=== PATIENT | male | born 1940 | race Caucasian/White ===

== ENCOUNTER 2024-09-26 13:42 | Inpatient (IN) | payer MEDICARE ==
[~2024-09-26] VITALS: Ht 195.6 cm; Wt 75.0 kg
[2024-09-26] MEDS: CefTRIAXone/D5W-Rocephin 1gm 50 ML IV ONE (14:06)
[2024-09-26] MEDS: normal saline 1000ml 1,000 ML IV ONE (14:06)
[2024-09-26 14:11] LABS: ABG BASE EXCESS -2.3 mmol/L (-2.0-3.0); ABG HCO3 20.1 mmol/L (21.0-28.0); ABG PCO2 (T) 29.4 mmHg (35.0-48.0); ABG PH (T) 7.454 (7.350-7.450); ABG PO2 (T) 68.5 mmHg (83.0-108.0); ALLEN'S TEST POSITIVE; FCOHb 0.2 % (0.5-1.5); FLOW 15 L/min; FO2Hb 93.8 % (94.0-98.0); MODE NRB; PATIENT TEMPERATURE 37.4; TOTAL HEMOGLOBIN 15.5 G/dl (13.5-17.5)
[2024-09-26 14:12] LABS: BASOPHILS % (AUTO) 0.3 % (0-1); EOSINOPHILS % (AUTO) 0.2 % (0-6); HEMATOCRIT 43.4 % (42.0-52.0); HEMOGLOBIN 14.6 g/dl (14.0-17.9); LYMPHOCYTES # (AUTO) 0.3 X10'3 (1.1-4.8); LYMPHOCYTES % (AUTO) 2.3 % (21-51); MEAN CORPUSCULAR HEMOGLOBIN 31.2 PG (27.0-31.0); MEAN CORPUSCULAR HGB CONC 33.7 g/dL (33.0-36.5); MEAN CORPUSCULAR VOLUME 92.6 FL (78-98); MEAN PLATELET VOLUME 9.6 FL (7.4-10.4); MONOCYTES # (AUTO) 0.8 X10'3 (0-0.9); MONOCYTES % (AUTO) 5.7 % (2-12); NEUTROPHILS # (AUTO) 13.5 X10'3 (1.8-7.7); NEUTROPHILS % (AUTO) 91.5 % (42-75); PLATELET COUNT 241 X10'3 (140-440); RED BLOOD COUNT 4.69 X10'6 (4.70-6.10); RED CELL DISTRIBUTION WIDTH 13.7 % (11.5-14.5); WHITE BLOOD COUNT 14.7 X10'3 (4.5-11.0)
[2024-09-26 14:28] LABS: ALANINE AMINOTRANSFERASE 7 U/L (12-78); ALBUMIN 3.1 G/DL (3.4-5.0); ALBUMIN/GLOBULIN RATIO 0.9 (1.1-1.5); ALKALINE PHOSPHATASE 64 IU/L (46-116); ANION GAP 13 (8-16); ASPARTATE AMINO TRANSFERASE 11 U/L (10-37); BILIRUBIN,TOTAL 0.7 MG/DL (0.1-1.0); BLOOD UREA NITROGEN 10 MG/DL (7-18); BUN/CREATININE RATIO 11.2 (10.0-20.0); CHLORIDE 99 MMOL/L (99-107); CREATININE 0.89 MG/DL (0.60-1.10); GLUCOSE 174 MG/DL (70-104); POTASSIUM 3.9 MMOL/L (3.5-5.1); SODIUM 133 MMOL/L (135-145); TOTAL CARBON DIOXIDE 21.5 MMOL/L (24-32); TOTAL PROTEIN 6.7 G/DL (6.4-8.2); eCRCL 66 ML/MIN; eGFR 81 ML/MIN
[2024-09-26] MEDS ORDERED: iohexol 300mg/ml 100ml inj. ONE (14:30)
[2024-09-26] MEDS ORDERED: ACET-3068 PO (14:40)
[2024-09-26] MEDS ORDERED: AMI200T PO (14:40)
[2024-09-26] MEDS ORDERED: EZET10TA48 PO (14:40)
[2024-09-26] MEDS ORDERED: TRAZ-251 PO (14:40)
[2024-09-26] MEDS ORDERED: LEVO50CA4 PO (14:40)
[2024-09-26] MEDS ORDERED: ENZA40CA PO (14:40)
[2024-09-26] MEDS ORDERED: MIDO10TA3 PO (14:40)
[2024-09-26] MEDS ORDERED: potassium Cl 20 mEq SR tablet PO PRN ×2 (17:15)
[2024-09-26] MEDS ORDERED: potassium Cl 40MEQ/1/2NS 520ml 520 ML IV PRN (17:15)
[2024-09-26] MEDS ORDERED: acetaminophen 325mg tablet PO PRN ×2 (17:15)
[2024-09-26] MEDS ORDERED: diphenhydrAMINE 50 mg/ml inj IV PRN (17:15)
[2024-09-26] MEDS ORDERED: magnesium Cl slow-release 64mg tablet PO PRN (17:15)
[2024-09-26] MEDS ORDERED: mag hydrox/Alum hydrox/simeth 30ml oral suspension PO PRN (17:15)
[2024-09-26] MEDS ORDERED: magnesium sulf-water 2g/50mL 50 ML IV PRN (17:15)
[2024-09-26] MEDS ORDERED: magnesium sulf-water 4G/100mL 100 ML IV PRN (17:15)
[2024-09-26] MEDS ORDERED: HYDROcodone/acetaminophen 5mg/325mg tablet PO PRN (17:15)
[2024-09-26] MEDS ORDERED: morphine 2 MG/ML inj. syringe IV PRN ×2 (17:15)
[2024-09-26] MEDS: normal saline 500ml IV soln 500 ML IV ONE (17:43)
[2024-09-26 17:45] LABS: BILIRUBIN,URINE NEGATIVE (Neg); CLARITY,URINE CLEAR (Clear); COLOR,URINE YELLOW (Yellow); GLUCOSE, URINE NEGATIVE (Neg); KETONES,URINE NEGATIVE (Neg); LEUKOCYTE ESTERASE ,URINE NEGATIVE (Neg); OCCULT BLOOD,URINE MODERATE (Neg); PH,URINE 6.5 (4.8-8.0); PROTEIN,URINE TRACE mg/dl (Neg); UROBILINOGEN,URINE 0.2 E.U/dL (0.2-1.0)
[2024-09-26 17:56] LABS: NITRITES, URINE NEGATIVE (Neg); UA COLLECTION TYPE CLN CATCH MIDSTREAM
[2024-09-26 17:57] LABS: BACTERIA,URINE NONE SEEN /HPF (Neg); RBC,URINE 0-2 /HPF (0-2); SQUAMOUS EPITHELIAL CELL,UR NONE SEEN /LPF (FEW)
[2024-09-26] MEDS: normal saline 1000ml 1,000 ML IV SCH (18:44)
[2024-09-26] MEDS: K and/or MAG REPLACEMENT MC SCH (19:07)
[2024-09-26] MEDS: docusate sod 100mg capsule PO SCH (19:18)
[2024-09-26] MEDS: heparin, porcine 5000 units/ml vial SQ SCH (19:18)
[2024-09-26] MEDS: PERFLUTREN PROTEIN-A MICROSPHR (Optison) 0.22 MG/ML 3ML VIAL IV ONE (19:35)
[2024-09-26] MEDS: HYDROcodone/acetaminophen 10/325mg tab PO PRN (19:45)
[2024-09-26] MEDS ORDERED: ipratropium/albuterol 3ml nebule NEB SCH (20:40)
[2024-09-26 20:49] LABS: URINE AMPHETAMINE SCREEN NEGATIVE (Neg); URINE BARBITUATE SCREEN NEGATIVE (Neg); URINE BENZODIAZEPINES SCREEN NEGATIVE (Neg); URINE CANNABINOID SCREEN NEGATIVE (Neg); URINE COCAINE SCREEN NEGATIVE (Neg); URINE METHADONE SCREEN NEGATIVE (Neg); URINE OPIATE SCREEN POSITIVE (Neg); URINE PHENCYCLIDINE SCREEN NEGATIVE (Neg)
[2024-09-26] MEDS: levoFLOXACIN-Levaquin 750MG/D5 150 ML IV SCH (21:24)
[2024-09-26] MEDS: methylPREDNISolone sod succ 125mg/2ml vial IV SCH (21:24)
[2024-09-26] MEDS: midodrine 5mg tablet PO SCH (21:47)
[2024-09-26 22:26] VITALS: PULSE 109; RESP 24; O2SAT 95
[2024-09-26] MEDS: ipratropium/albuterol 3ml nebule NEB SCH (22:26)
[2024-09-26 22:33] VITALS: PULSE 110; RESP 20
[2024-09-27] VITALS (17 sets, daily range): BP systolic 104–125; BP diastolic 66–76; PULSE 60–96; RESP 16–24; TEMP 96.9–97.6; O2SAT 87–97
[2024-09-27] MEDS: cefepime 2g/NS 100ml ADVANTAGE 100 ML IV SCH (01:04)
[2024-09-27 03:33] LABS: BASOPHILS % (AUTO) 0.3 % (0-1); EOSINOPHILS % (AUTO) 0 % (0-6); HEMATOCRIT 40.8 % (42.0-52.0); HEMOGLOBIN 13.6 g/dl (14.0-17.9); LYMPHOCYTES # (AUTO) 0.3 X10'3 (1.1-4.8); LYMPHOCYTES % (AUTO) 2.1 % (21-51); MEAN CORPUSCULAR HEMOGLOBIN 31.2 PG (27.0-31.0); MEAN CORPUSCULAR HGB CONC 33.3 g/dL (33.0-36.5); MEAN CORPUSCULAR VOLUME 93.5 FL (78-98); MEAN PLATELET VOLUME 10.7 FL (7.4-10.4); MONOCYTES # (AUTO) 0.5 X10'3 (0-0.9); MONOCYTES % (AUTO) 3.8 % (2-12); NEUTROPHILS # (AUTO) 11.4 X10'3 (1.8-7.7); NEUTROPHILS % (AUTO) 93.8 % (42-75); PLATELET COUNT 189 X10'3 (140-440); RED BLOOD COUNT 4.36 X10'6 (4.70-6.10); RED CELL DISTRIBUTION WIDTH 13.8 % (11.5-14.5); WHITE BLOOD COUNT 12.2 X10'3 (4.5-11.0)
[2024-09-27 03:46] LABS: OSMOLALITY 279 MOSM/K (280-300)
[2024-09-27 03:54] LABS: HEMOGLOBIN A1C 5.8 % (4.5-6.2)
[2024-09-27 04:01] LABS: ALANINE AMINOTRANSFERASE 6 U/L (12-78); ALBUMIN 2.8 G/DL (3.4-5.0); ALBUMIN/GLOBULIN RATIO 0.8 (1.1-1.5); ALKALINE PHOSPHATASE 51 IU/L (46-116); ANION GAP 7 (8-16); ASPARTATE AMINO TRANSFERASE 12 U/L (10-37); BILIRUBIN,TOTAL 0.4 MG/DL (0.1-1.0); BLOOD UREA NITROGEN 11 MG/DL (7-18); BUN/CREATININE RATIO 12.4 (10.0-20.0); CALCIUM 8.4 MG/DL (8.5-10.1); CHLORIDE 99 MMOL/L (99-107); CHOL/HDL RATIO 3.5 (0.00-4.99); CHOLESTEROL 159 MG/DL (0-200); CREATININE 0.89 MG/DL (0.60-1.10); FREE T4 (FREE THYROXINE) 1.32 NG/DL (0.73-1.40); GLUCOSE 173 MG/DL (70-104); HDL CHOLESTEROL 46 MG/DL (35-60); LDL CHOLESTEROL 100 MG/DL (50-100); MAGNESIUM 1.8 MG/DL (1.5-2.4); SODIUM 131 MMOL/L (135-145); THYROID STIMULATING HORMONE 0.64 ulU/ml (0.34-4.50); TOTAL CARBON DIOXIDE 24.6 MMOL/L (24-32); TOTAL PROTEIN 6.4 G/DL (6.4-8.2); TRIGLYCERIDES 51 MG/DL (20-135); eCRCL 66 ML/MIN; eGFR 81 ML/MIN
[2024-09-27] MEDS ORDERED: CEFEPIME 2gm in D5W 50mL 100 ML IV SCH (06:35)
[2024-09-27] MEDS: CEFEPIME 2gm in D5W 50mL 50 ML IV SCH (08:01)
[2024-09-27] MEDS: amiodarone 200mg tablet PO SCH (08:02)
[2024-09-27] MEDS: levoTHYROXINE 25mcg tablet PO SCH (08:02)
[2024-09-27] MEDS: guaiFENesin 200 MG/10 ML oral syrup UD cup PO SCH (10:59)
[2024-09-27] MEDS: ondansetron/PF 4mg/2ml inj IV PRN (12:03)
[2024-09-27] MEDS: mineral oil 133ml enema RC ONE (13:07)
[2024-09-27] MEDS: magnesium hydroxide 30ml (MOM) UD suspension PO PRN (14:04)
[2024-09-28] VITALS (18 sets, daily range): BP systolic 109–125; BP diastolic 63–77; PULSE 56–71; RESP 14–20; TEMP 97.3–97.9; O2SAT 90–96
[2024-09-28 06:55] LABS: BASOPHILS % (AUTO) 0.1 % (0-1); EOSINOPHILS % (AUTO) 0 % (0-6); HEMATOCRIT 39.8 % (42.0-52.0); HEMOGLOBIN 13.4 g/dl (14.0-17.9); LYMPHOCYTES # (AUTO) 0.4 X10'3 (1.1-4.8); LYMPHOCYTES % (AUTO) 4.1 % (21-51); MEAN CORPUSCULAR HEMOGLOBIN 31.3 PG (27.0-31.0); MEAN CORPUSCULAR HGB CONC 33.7 g/dL (33.0-36.5); MEAN CORPUSCULAR VOLUME 93.1 FL (78-98); MEAN PLATELET VOLUME 10.4 FL (7.4-10.4); MONOCYTES # (AUTO) 0.7 X10'3 (0-0.9); MONOCYTES % (AUTO) 7.1 % (2-12); NEUTROPHILS # (AUTO) 8.7 X10'3 (1.8-7.7); NEUTROPHILS % (AUTO) 88.7 % (42-75); PLATELET COUNT 183 X10'3 (140-440); RED BLOOD COUNT 4.28 X10'6 (4.70-6.10); RED CELL DISTRIBUTION WIDTH 14.3 % (11.5-14.5); WHITE BLOOD COUNT 9.9 X10'3 (4.5-11.0)
[2024-09-28 07:29] LABS: ALANINE AMINOTRANSFERASE 10 U/L (12-78); ALBUMIN 2.7 G/DL (3.4-5.0); ALBUMIN/GLOBULIN RATIO 0.8 (1.1-1.5); ALKALINE PHOSPHATASE 49 IU/L (46-116); ANION GAP 6 (8-16); ASPARTATE AMINO TRANSFERASE 15 U/L (10-37); BILIRUBIN,TOTAL 0.3 MG/DL (0.1-1.0); BLOOD UREA NITROGEN 14 MG/DL (7-18); BUN/CREATININE RATIO 16.7 (10.0-20.0); CALCIUM 8.4 MG/DL (8.5-10.1); CHLORIDE 102 MMOL/L (99-107); CREATININE 0.84 MG/DL (0.60-1.10); GLUCOSE 157 MG/DL (70-104); POTASSIUM 4.5 MMOL/L (3.5-5.1); SODIUM 134 MMOL/L (135-145); TOTAL CARBON DIOXIDE 25.8 MMOL/L (24-32); TOTAL PROTEIN 6.1 G/DL (6.4-8.2); eCRCL 69 ML/MIN; eGFR 87 ML/MIN
[2024-09-28] MEDS: bisacodyl 10mg suppository rectal RC STA (13:52)
[2024-09-29] VITALS (7 sets, daily range): BP systolic 84–150; BP diastolic 58–84; PULSE 53–137; RESP 10–20; TEMP 96.4–99.9; O2SAT 93–96
[2024-09-29 06:27] LABS: BASOPHILS % (AUTO) 0.2 % (0-1); EOSINOPHILS % (AUTO) 0 % (0-6); HEMATOCRIT 37.2 % (42.0-52.0); HEMOGLOBIN 12.7 g/dl (14.0-17.9); LYMPHOCYTES # (AUTO) 0.4 X10'3 (1.1-4.8); LYMPHOCYTES % (AUTO) 3.8 % (21-51); MEAN CORPUSCULAR HEMOGLOBIN 31.3 PG (27.0-31.0); MEAN CORPUSCULAR HGB CONC 34.1 g/dL (33.0-36.5); MEAN CORPUSCULAR VOLUME 91.9 FL (78-98); MEAN PLATELET VOLUME 10.2 FL (7.4-10.4); MONOCYTES # (AUTO) 0.4 X10'3 (0-0.9); MONOCYTES % (AUTO) 3.6 % (2-12); NEUTROPHILS # (AUTO) 10.2 X10'3 (1.8-7.7); NEUTROPHILS % (AUTO) 92.4 % (42-75); PLATELET COUNT 172 X10'3 (140-440); RED BLOOD COUNT 4.05 X10'6 (4.70-6.10); RED CELL DISTRIBUTION WIDTH 13.7 % (11.5-14.5)
[2024-09-29 07:22] LABS: ALANINE AMINOTRANSFERASE 11 U/L (12-78); ALBUMIN 2.6 G/DL (3.4-5.0); ALBUMIN/GLOBULIN RATIO 0.8 (1.1-1.5); ALKALINE PHOSPHATASE 47 IU/L (46-116); ANION GAP 9 (8-16); ASPARTATE AMINO TRANSFERASE 14 U/L (10-37); BILIRUBIN,TOTAL 0.2 MG/DL (0.1-1.0); BLOOD UREA NITROGEN 17 MG/DL (7-18); BUN/CREATININE RATIO 20.7 (10.0-20.0); CALCIUM 8.4 MG/DL (8.5-10.1); CHLORIDE 101 MMOL/L (99-107); CREATININE 0.82 MG/DL (0.60-1.10); GLUCOSE 150 MG/DL (70-104); POTASSIUM 4.2 MMOL/L (3.5-5.1); SODIUM 133 MMOL/L (135-145); TOTAL CARBON DIOXIDE 22.7 MMOL/L (24-32); TOTAL PROTEIN 5.8 G/DL (6.4-8.2); eCRCL 71 ML/MIN; eGFR 90 ML/MIN
[2024-09-29] MEDS: amiodarone 150mg/dext, iso-os 100 ML IV ONE ×2 (08:35)
[2024-09-29] MEDS: amiodarone/D5 360MG/200ML BAG 200 ML IV SCH (08:52)
[2024-09-29] MEDS: levoFLOXACIN 750MG TABLET PO SCH (11:26)
[2024-09-29] MEDS: amiodarone 200mg tablet PO SCH (19:58)
[2024-09-30 02:00] VITALS: BP 130/80; PULSE 54; RESP 18; TEMP 97.7; O2SAT 94
[2024-09-30 07:09] LABS: BASOPHILS % (AUTO) 0 % (0-1); EOSINOPHILS % (AUTO) 0 % (0-6); HEMATOCRIT 40.6 % (42.0-52.0); HEMOGLOBIN 13.5 g/dl (14.0-17.9); LYMPHOCYTES # (AUTO) 0.8 X10'3 (1.1-4.8); LYMPHOCYTES % (AUTO) 8.9 % (21-51); MEAN CORPUSCULAR HEMOGLOBIN 30.7 PG (27.0-31.0); MEAN CORPUSCULAR HGB CONC 33.3 g/dL (33.0-36.5); MEAN CORPUSCULAR VOLUME 92.2 FL (78-98); MEAN PLATELET VOLUME 10.6 FL (7.4-10.4); MONOCYTES # (AUTO) 0.4 X10'3 (0-0.9); MONOCYTES % (AUTO) 4.9 % (2-12); NEUTROPHILS # (AUTO) 7.9 X10'3 (1.8-7.7); NEUTROPHILS % (AUTO) 86.2 % (42-75); PLATELET COUNT 170 X10'3 (140-440); RED CELL DISTRIBUTION WIDTH 13.8 % (11.5-14.5); WHITE BLOOD COUNT 9.2 X10'3 (4.5-11.0)
[2024-09-30 07:13] VITALS: BP 120/75; PULSE 52; RESP 18; TEMP 98.7; O2SAT 94
[2024-09-30 07:35] LABS: ALANINE AMINOTRANSFERASE 11 U/L (12-78); ALBUMIN 2.7 G/DL (3.4-5.0); ALBUMIN/GLOBULIN RATIO 0.8 (1.1-1.5); ALKALINE PHOSPHATASE 43 IU/L (46-116); ANION GAP 9 (8-16); ASPARTATE AMINO TRANSFERASE 15 U/L (10-37); BILIRUBIN,TOTAL 0.4 MG/DL (0.1-1.0); BLOOD UREA NITROGEN 13 MG/DL (7-18); BUN/CREATININE RATIO 16.3 (10.0-20.0); CALCIUM 8.5 MG/DL (8.5-10.1); CHLORIDE 99 MMOL/L (99-107); GLUCOSE 144 MG/DL (70-104); POTASSIUM 3.7 MMOL/L (3.5-5.1); SODIUM 133 MMOL/L (135-145); TOTAL CARBON DIOXIDE 25.3 MMOL/L (24-32); eCRCL 73 ML/MIN; eGFR > 90 ML/MIN
[2024-09-30 11:24] VITALS: RESP 15; O2SAT 94
[2024-09-30 11:58] VITALS: BP 120/67; PULSE 56; RESP 13; TEMP 97.3; O2SAT 100
[2024-09-30] MEDS ORDERED: AMOX500C2 PO (13:00)
[2024-09-30 13:25] VITALS: BP 117/80
== END 2024-09-30 15:12 | disposition home health service (06) | DRG 871 ==
LOC: ER 13:43 → ED HOLD 17:22 → EDBEDREQTM 23:10 → EDBEDREQ 23:10 → EDBEDREQTM 09-27 00:21 → EDBEDREQ 09-27 00:21 → ORTHO 4S 09-27 07:05 → PCU 3S 09-29 08:59
PROVIDERS: ADMIT Nurse Practitioner Family; ATTEND Nurse Practitioner Family
PROC: BW251ZZ Computerized Tomography (CT Scan) of Chest, Abdomen and Pelvis using Low Osmolar Contrast (ICD-10-PCS; principal; 2024-09-26)
DX: A41.9 Sepsis, unspecified organism (principal); J18.9 Pneumonia, unspecified organism; J96.01 Acute respiratory failure with hypoxia; G93.40 Encephalopathy, unspecified; E87.4 Mixed disorder of acid-base balance; E87.1 Hypo-osmolality and hyponatremia; I47.19 Other supraventricular tachycardia; M16.11 Unilateral primary osteoarthritis, right hip; E03.9 Hypothyroidism, unspecified; E78.5 Hyperlipidemia, unspecified; Z20.822 Contact with and (suspected) exposure to COVID-19; Z96.642 Presence of left artificial hip joint; Z85.46 Personal history of malignant neoplasm of prostate; Z79.899 Other long term (current) drug therapy; Z87.01 Personal history of pneumonia (recurrent)
CPT/HCPCS: 36415; 36600; 71045; 71260; 74177; 76870; 80053; 80061; 80305; 81001; 82803; 83036; 83605; 83735; 83930; 84145; 84439; 84443; 85018; 85025; 87040; 87077; 87081; 87088; 87186; 87502; 87503; 87811; 92508; 92616; 93005; 93308; 94640; 94760; 96365; 97110; 97161; 97530; 99285; A4615; A6213; A6590; C1758; G0378; J0282; J0692; J0696; J1644; J1956; J2405; J2919; J7030; J7040; Q9967